=== PATIENT | male | born 1985 | race Caucasian/White ===

== ENCOUNTER → 2021-02-01 | Outpatient (CLI) | payer OTHER ==
--- NOTE | 2021-02-01 10:47 | PFTRPT ---
Site: [facility], [address] [place], [address] ID: [id number] Name: USHA EDEN Visit Date: 02/01/2021 Second ID: [id number] Referring Doctor: Bib Tavarez D.O. Reviewing Doctor: Cristian Hester MD Emergency Vehicle Operator: Patricia ALLAN RRT Age: 36 : 1985 Sex: Male Race: Height: 69.00 Inches Weight: 180.00 Lbs BSA: 1.98 Order IDs: [id number] Requested Test(s): <RESP-PFT.PFT B/A> Diagnosis: R06.00 test meet the ATS standards for acceptability and repeatability. Pt was given four puffs of albuterol for post bronchodilator. Review Status: Not Reviewed Pre-Bronch Post-Bronch Pred Actual %Pred Actual %Chng SPIROMETRY FVC (L) 5.17 5.20 100 5.23 FEV1 (L) 4.14 4.26 102 4.39 3 FEV1/FVC (%) 80 82 102 84 2 FEF 25% (L/sec) 7.90 8.12 102 8.07 FEF 50% (L/sec) 5.27 5.71 108 6.05 5 FEF 75% (L/sec) 1.91 1.82 95 2.25 23 FEF 25-75% (L/sec) 3.98 4.38 110 5.02 14 FEF Max (L/sec) 9.98 8.54 85 8.59 FIVC (L) 5.25 5.35 1 FIF 50% (L/sec) 5.29 5.30 100 6.41 20 FIF Max (L/sec) 5.88 6.63 12 MVV (L/min) 165 156 94 Expiratory Time (sec) 6.64 6.59 Back Extrap Vol (L) 0.15 0.14 -4 Time To FEFmax (sec) 0.102 0.135 32 LUNG VOLUMES SVC (L) 4.99 5.19 103 IC (L) 3.40 4.03 118 ERV (L) 1.59 1.16 72 TGV (L) 3.32 3.64 109 RV (Pleth) (L) 1.73 2.48 143 TLC (Pleth) (L) 6.72 7.67 114 RV/TLC (Pleth) (%) 26 32 124 DIFFUSION DLCOunc (ml/min/mmHg) 33.04 40.20 121 DLCOcor (ml/min/mmHg) 33.04 41.82 126 DL/VA (ml/min/mmHg/L) 4.92 6.05 122 VA (L) 6.72 6.91 102 BHT (sec) 10.37 IVC (L) 5.04 TLC (SB) (L) 7.06 AIRWAYS RESISTANCE Raw (cmH2O/L/s) 1.45 0.64 44 Gaw (L/s/cmH2O) 1.03 1.58 153 sRaw (cmH2O*s) 4.76 2.47 51 sGaw (1/cmH2O*s) 0.20 0.41 203 BLOOD GASES Hgb (gm/dL) 13.3
== END ==
LOC: M CARPUL 10:07
PROVIDERS: ATTEND Internal Medicine Pulmonary Disease
DX: R06.00 Dyspnea, unspecified (principal)

== ENCOUNTER → 2021-02-04 | Outpatient (CLI) | payer OTHER ==
[~2021-02-04] MED LIST: METHACHOLINE KIT (J7674) INH ONE
--- NOTE | 2021-02-04 08:48 | PFTRPT ---
Site: [facility], [address] [place], [address] ID: [id number] Name: USHA EDEN Visit Date: 02/04/2021 Second ID: [id number] Referring Doctor: Bib Tavarez D.O. Reviewing Doctor: Cristian Hester MD Business Project Manager: Patricia ALLAN RRT Age: 36 : 1985 Sex: Male Race: Height: 69.00 Inches Weight: 180.00 Lbs BSA: 1.98 Order IDs: [id number] Requested Test(s): <RESP-PFT.METH CHAL> Diagnosis: R06.00 of albuterol for post bronchodilator. Review Status: Not Reviewed Pre-Bronch Post-Bronch Pred Actual %Pred Actual %Chng SPIROMETRY FVC (L) 5.17 5.07 97 4.99 -1 FEV1 (L) 4.14 4.11 99 4.09 FEV1/FVC (%) 80 81 101 82 1 FEF 25% (L/sec) 7.90 6.92 87 6.36 -8 FEF 50% (L/sec) 5.27 5.15 97 4.76 -7 FEF 75% (L/sec) 1.91 1.75 91 2.10 19 FEF 25-75% (L/sec) 3.98 4.16 104 4.18 FEF Max (L/sec) 9.98 7.02 70 6.36 -9 FIVC (L) 4.92 4.87 -1 FIF 50% (L/sec) 5.29 4.43 83 4.51 1 FIF Max (L/sec) 5.39 5.03 -6 Expiratory Time (sec) 5.97 6.35 6 Back Extrap Vol (L) 0.15 0.18 26 Time To FEFmax (sec) 0.154 0.197 28
== END ==
LOC: M CARPUL 08:04
PROVIDERS: ATTEND Internal Medicine Pulmonary Disease
DX: R06.00 Dyspnea, unspecified (principal)

== ENCOUNTER → 2022-06-07 | Outpatient (CLI) | payer OTHER ==
[2022-06-07 14:12] LABS: HEMATOCRIT 44.6 % (42.0-52.0); HEMOGLOBIN 14.9 g/dl (13.5-17.5); MEAN CORPUSCULAR HGB CONC 33.4 g/dl (32.0-36.5); MEAN CORPUSCULAR VOLUME 89.9 fl (80.0-96.0); PLATELET COUNT, AUTOMATED 233 10^3/uL (150-450); RED BLOOD COUNT 4.96 10^6/uL (4.30-6.10); WHITE BLOOD COUNT 4.6 10^3/uL (4.0-10.0)
[2022-06-07 14:31] LABS: BLOOD UREA NITROGEN 15 MG/DL (9-23); CALCIUM LEVEL 9.1 MG/DL (8.5-10.1); CARBON DIOXIDE LEVEL 30 MMOL/L (20-31); CHLORIDE LEVEL 105 MMOL/L (98-107); CREATININE FOR GFR 1.13 MG/DL (0.70-1.30); GLOMERULAR FILTRATION RATE > 60.0 (>60); GLUCOSE, FASTING 84 MG/DL (60-100); POTASSIUM SERUM 4.5 MMOL/L (3.5-5.1); SODIUM LEVEL 140 MMOL/L (136-145)
== END ==
LOC: M LAB 13:47
PROVIDERS: ATTEND Plastic Surgery Surgery of the Hand
DX: D17.0 Benign lipomatous neoplasm of skin and subcutaneous tissue of head, face and neck (principal)

== ENCOUNTER 2022-06-14 06:03 | Day surgery (SDC) | payer OTHER ==
[~2022-06-14] VITALS: Ht 175.3 cm; Wt 86.2 kg
[~2022-06-14 06:03] MED LIST changes: -METHACHOLINE KIT (J7674) INH ONE; +ceFAZolin SOD 2 GM in IV 1 EA IV ONE
[2022-06-14] MEDS ORDERED: LR 1,000 ML IV SCH (06:30)
[2022-06-14] MEDS ORDERED: propofoL 200 MG/20 ML VIAL As Ordered ONE (07:15)
[2022-06-14] MEDS ORDERED: fentaNYL 100 MCG/2 ML INJECTION As Ordered ONE (07:15)
[2022-06-14] MEDS ORDERED: MIDAZOLAM INJ 2MG/2ML VIAL As Ordered ONE (07:15)
[2022-06-14] MEDS ORDERED: LIDOCAINE 2% 100MG/5ML SDV (FOR ANES.) As Ordered ONE (07:15)
[2022-06-14] MEDS ORDERED: ONDANSETRON 4MG 2ML VIAL As Ordered ONE (07:15)
[2022-06-14] MEDS ORDERED: LIDOCAINE 2% W/EPINEPHRINE 20ML VIAL **PRES FREE As Ordered ONE (07:21)
[2022-06-14] MEDS ORDERED: POLYSPORIN OPHTH OINT 3.5 GM As Ordered ONE (07:21)
[2022-06-14] MEDS ORDERED: LIDOCAINE W/EPINEPHRINE 1% 20ML VIAL As Ordered ONE (07:21)
[2022-06-14 09:21] VITALS: BP 125/81
== END 2022-06-14 09:45 | disposition home or self-care (01) ==
LOC: M SDC 06:03
PROVIDERS: ATTEND Plastic Surgery Surgery of the Hand
DX: D17.0 Benign lipomatous neoplasm of skin and subcutaneous tissue of head, face and neck (principal); J45.909 Unspecified asthma, uncomplicated
CPT/HCPCS: 11443; 12051; 88305; J0690; J1100; J2250; J2405; J3010